=== PATIENT | male | born 1950 | race Caucasian/White ===

== ENCOUNTER 2020-11-12 06:24 | Day surgery (SDC) | payer MEDICARE, OTHER ==
[2020-11-11 14:04] LABS: COVID AG,FIA SOURCE NASOPHARYNGEAL
[~2020-11-12] VITALS: Ht 185.4 cm; Wt 88.6 kg
[~2020-11-12 06:24] MED LIST: ACYC400T PO; AMLO-258 PO; CHOL10002 PO; CLON0.1T2 PO; LISI40TA9 PO; METO-416 PO; TRAZ150 PO
[2020-11-12] MEDS ORDERED: SODIUM CHLORIDE 0.9% 500 ML IV ONE ×2 (07:00→07:31)
[2020-11-12] MEDS ORDERED: PHENYLEPHRINE HCL 2.5% 2 ML OPHTHALMIC SOLUTION ONE (07:30)
[2020-11-12] MEDS ORDERED: MOXIFLOXACIN HCL 0.5% 3 ML OPHTHALMIC SOLUTION ONE (07:30)
[2020-11-12] MEDS ORDERED: KETOROLAC TROMETHAMINE 0.5% 5 ML OPHTHALMIC SOLUTION ONE (07:30)
[2020-11-12] MEDS ORDERED: TROPICAMIDE 1% 2 ML OPHTHALMIC SOLUTION ONE (07:30)
[2020-11-12] MEDS: PHENYLEPHRINE HCL 2.5% 2 ML OPHTHALMIC SOLUTION OS SCH ×3 (08:18→08:37)
[2020-11-12] MEDS: MOXIFLOXACIN HCL 0.5% 3 ML OPHTHALMIC SOLUTION OS SCH ×3 (08:18→08:37)
[2020-11-12] MEDS: TROPICAMIDE 1% 2 ML OPHTHALMIC SOLUTION OS SCH ×3 (08:18→08:37)
[2020-11-12] MEDS: KETOROLAC TROMETHAMINE 0.5% 5 ML OPHTHALMIC SOLUTION OS SCH ×3 (08:18→08:37)
[2020-11-12] MEDS ORDERED: MIDAZOLAM HCL 2 MG/2 ML VIAL IVP ONE (12:00)
[2020-11-12] MEDS ORDERED: FentaNYL CITRATE PF 100 MCG/2 ML VIAL IVP ONE (12:00)
== END 2020-11-12 11:20 | disposition home or self-care (01) ==
LOC: SURGERY 06:24
PROVIDERS: ATTEND Ophthalmology
DX: H25.12 Age-related nuclear cataract, left eye (principal); F17.210 Nicotine dependence, cigarettes, uncomplicated; I10 Essential (primary) hypertension; Z98.890 Other specified postprocedural states; Z90.49 Acquired absence of other specified parts of digestive tract; Z86.19 Personal history of other infectious and parasitic diseases; Z79.899 Other long term (current) drug therapy
CPT/HCPCS: 66982; 87426; 93005; C9803; J2250; J3010; J7040; V2632